=== PATIENT | female | born 1960 | race Caucasian/White ===

== ENCOUNTER 2024-10-05 17:26 | Emergency (ER) | payer BC ==
[2024-10-05] MEDS ORDERED: Aspirin Chewable 81 MG TAB ONE (17:34)
[2024-10-05] MEDS ORDERED: Nitroglycerin 0.4 MG TAB 1 EACH ONE (17:34)
[2024-10-05 17:43] LABS: #Basophils 0.1 thou/uL (0.0-0.2); #Eosinophils 0.5 thou/uL (0.0-0.7); #Lymphocytes 2.3 thou/uL (1.20-3.40); #Monocytes 0.6 thou/uL (0.11-0.59); #Neutrophils 5.8 thou/uL (1.40-6.50); %Basophils 1.2 % (0.0-1.0); %Lymphocytes 24.5 % (21.0-51.0); %Neutrophils 63.2 % (42.0-75.0); Hematocrit 46.2 % (36.0-47.0); Hemoglobin 14.7 g/dL (12.0-16.0); Mean Corpuscular HGB CONC 31.7 g/dL (32.0-36.0); Mean Corpuscular Hemoglobin 28.7 pg (27.0-31.0); Mean Corpuscular Volume 90.6 fl (78.0-98.0); Mean Platelet Volume 7.1 fL (7.4-10.4); Platelet Count 329 10x3/uL (130-400); RBC Distribution Width 12.5 % (11.5-14.5); White Blood Cell (WBC) Count 9.3 10x3/uL (4.8-10.8)
[2024-10-05 18:02] LABS: ALT (SGPT) 30 U/L (8-55); AST (SGOT) 29 U/L (5-34); Albumin 3.8 g/dL (3.4-4.8); Alkaline Phosphatase 65 U/L (40-110); Anion Gap 15 mmol/L (10-20); BUN (Urea Nitrogen) 23 mg/dL (9.8-20.1); Bilirubin, Total 0.3 mg/dL (0.2-1.2); Calc. Creatinine Clearance 0 mL/min (70-130); Carbon Dioxide 24 mmol/L (23-31); Chloride 106 mmol/L (98-107); Estimated GFR 41; Globulin 4.2 g/dL (2.4-3.5); Glucose 84 mg/dL (80-115); Sodium 141 mmol/L (136-145)
[2024-10-05 18:05] LABS: Troponin I Less than 0.010 ng/mL (< 0.028)
[2024-10-05 21:41] LABS: Troponin I Less than 0.010 ng/mL (< 0.028)
== END 2024-10-05 22:08 | disposition short-term general hospital (02) ==
LOC: BURERS 17:26
DX: R07.89 Other chest pain (principal); I10 Essential (primary) hypertension; E11.9 Type 2 diabetes mellitus without complications; Z55.6 Problems related to health literacy
CPT/HCPCS: 71045; 80053; 83880; 84484; 85025; 93005